=== PATIENT | female | born 1965 | race Caucasian/White ===

== ENCOUNTER 2016-11-21 07:32 | Day surgery (SDC) | payer OTHER ==
--- NOTE | 2016-11-07 10:06 | HP ---
CC: Gisela Stevens MD, [facility]; Jemima Billingsley MD* PREOPERATIVE HISTORY AND PHYSICAL: DATE OF ADMISSION: 11/21/16 This patient is scheduled for same-day surgery admission by Dr. Stevens on Thursday , 11/21/16. ATTENDING SURGEON: Gisela Stevens MD* (dictated by Mariam Vega NP). CHIEF COMPLAINT: Anal polyp and anal skin tags. HISTORY OF PRESENT ILLNESS: The patient is a 51-year-old female recently evaluated by Dr. Stevens for anal skin tags and anal polyp. The patient states that she has had anal skin tags for approximately 5 years and has been using Proctosol and baby wipes continuously. She denies problems with constipation and states that she eats a vegan diet and denies any blood per rectum. She states that on a recent colonoscopy, she was told that she had no internal hemorrhoids. Dr. Stevens examined the patient and notices multiple small skin tags in the 4 to 6 o'clock position and at the 10 to 11 o'clock position and then digital exam revealed a firm polypoid lesion at the 11 o'clock position; anoscopy also revealed several small internal hemorrhoids and at the 11 o'clock position is the larger 0.5 cm broad- based pedunculated mass. Dr. Stevens discussed the findings with the patient and has advised excision of the anal polypoid mass and the anal skin tags as a same day surgery procedure at [facility]. She described the nature of the surgical procedure, the rationale for the procedure, the relevant risks and benefits and today I reviewed the typical postoperative care and recovery. The patient has had a chance to ask questions and stated that she understands the information and is satisfied with the answers given to her questions. She will sign surgical consent on the day of surgery. PAST MEDICAL HISTORY: Malignant tumor of thyroid gland with thyroidectomy followed by ablation, 2007, in [facility]. PAST SURGICAL HISTORY: Thyroidectomy in 2007; laparoscopic cholecystectomy in 1994; laparoscopic appendectomy in 2000 and repair of detached retina in 1982. OBSTETRIC HISTORY: 0. She is up-to-date with mammogram, breast exam, pelvic, and Pap smear; she states that her last menstrual period was March 2016 and she is perimenopausal. MEDICATIONS: 1. Synthroid 112 mcg p.o. daily in the morning. 2. Multivitamin daily in the evening. 3. Calcium plus D supplement daily in the evening. 4. Vitamin D 1000 international units daily in the evening. 5. Vitamin B12, 1000 mg daily in the evening. 6. Iron Chews pediatric dose 27 mg p.o. daily in the evening. 7. CoQ10 p.o. daily. 8. Famotidine 40 mg p.o. daily. 9. Biotin 1 tablet daily in the evening. ALLERGIES: 1. CODEINE causes GI upset. 2. MORPHINE caused severe vomiting. 3. She is also intolerant to milk related compounds. FAMILY HISTORY: No known anesthesia complications, bleeding tendencies, or clotting disorders. Father had a history of lung and thyroid cancer. Mother with a history of hyperthyroidism. 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 She exercises regularly by walking. She drinks 1 alcoholic beverage daily. She denies the use of other substances. REVIEW OF SYSTEMS: Constitutional: Denies fevers, chills, excessive fatigue, or weight loss. Endocrine: History of thyroid malignancy, status post thyroidectomy in 2007; no diabetes. Hematologic: No easy bruising or bleeding ; no history of deep vein thrombosis or pulmonary embolism. No history of blood transfusions. Respiratory: No dyspnea on exertion. No chronic cough. Cardiovascular: No anginal chest pain or palpitations. Gastrointestinal: No nausea, vomiting, diarrhea, GI bleeding, or constipation. No change in bowel habits. No heartburn. Genitourinary: No dysuria. Musculoskeletal: No joint or back pain. Neurologic: No headache or blurred vision. General: No previous anesthesia complications. PHYSICAL EXAMINATION GENERAL SURVEY: The patient is a 51-year-old female, well developed, well nourished, in no acute distress. VITAL SIGNS: Height 62.75 inches, weight 111 pounds, body mass index 19.8. Blood pressure 115/70, pulse 68 and regular, respiratory rate 16, temperature 96.8 tympanic. HEENT: Benign. NECK: Supple. No cervical lymphadenopathy. Well-healed surgical scar, anterior neck. LUNGS: Breath sounds bilaterally clear and equal. HEART: Regular rate and rhythm. No murmurs or rubs appreciated. BACK: No CVA tenderness. ABDOMEN: Active bowel sounds. Multiple well-healed surgical scars, soft, nondistended, nontender throughout. No obvious masses, organomegaly or evidence of ventral hernia. PELVIC EXAM: Done recently, not repeated. RECTAL EXAM: Done by Dr. Stevens revealed multiple small pedunculated skin tags in the 4 to 6 o'clock position and at the 10 to 11 o'clock position; digital exam revealed a firm polypoid lesion at the 11 o'clock position; anoscopy revealed several small internal hemorrhoids and at the 11 o'clock position is the larger 0.5 cm broad-based pedunculated mass. EXTREMITIES: Warm without edema or skin ulcerations. NEUROLOGIC: Alert and oriented x3, steady gait. SKIN: Warm, dry, intact. IMPRESSION: Anal skin tags and anal polyp. PLAN: Same-day surgery admission to Dr. Stevens's service on 11/21/16, for excision of anal polyp and anal skin tags. CARIDAD VEGA, ACQUISITION EDITOR [id number]/[facility] #: [id number] [facility]PITAL[facility]
[~2016-11-21 07:32] MED LIST: Buffered Lidocaine 0.9% SYRIN* 5 ML/SYR SYRINGE INTRADERM ONE; Famotidine IV* 10 MG/ML 2 ML (20 mg) IV ONE; HYDROmorphone INJ* 1 MG/ML CARPUJECT SYRINGE IV PRN; Ondansetron INJ* 2 MG/ML VIAL IV PRN; PROCHLORPERAZINE INJ 5 MG/ML 2 ML VIAL IV PRN; Scopolamine 1.5 mg* PATCH TRANSDERM ONE; fentaNYL* 50 MCG/ML 2 ML VIAL (100 MCG VIAL) IV PRN
[2016-11-21] MEDS ORDERED: Famotidine IV* 10 MG/ML 2 ML (20 mg) ONE (07:35)
[2016-11-21] MEDS ORDERED: Buffered Lidocaine 0.9% SYRIN* 5 ML/SYR SYRINGE ONE (07:36)
[2016-11-21] MEDS ORDERED: ceFAZolin 2 GM PREMIX (*) 0 ML IVPB ONE (07:36)
[2016-11-21] MEDS ORDERED: Scopolamine 1.5 mg* PATCH ONE (08:07)
[2016-11-21] MEDS ORDERED: Midazolam* 1 MG/ML 5 ML VIAL (5 MG) ONE (08:26)
[2016-11-21] MEDS ORDERED: Bupivacaine 0.25% SDV* 30 ML ONE (08:30)
[2016-11-21] MEDS ORDERED: Gelfoam Sponge SIZE 100* SPONGE ONE (08:30)
[2016-11-21] MEDS ORDERED: Lidocaine 2% JELLY* 6 ML JELLY TOPICAL ONE (08:30)
[2016-11-21] MEDS ORDERED: ceFOXitin 2 GM IVPREMIX* 2 GM/50 ML BAG ONE (09:00)
[2016-11-21] MEDS ORDERED: Lidocaine 2% PF * 5 ML VIAL ONE (09:33)
[2016-11-21] MEDS ORDERED: Chloroprocaine 2%* 20 ML VIAL ONE (09:33)
[2016-11-21] MEDS ORDERED: Dexamethasone IV* 4 MG/ML 1 ML (4 MG) ONE (09:33)
[2016-11-21] MEDS ORDERED: Ondansetron INJ* 2 MG/ML VIAL ONE (09:33)
[2016-11-21] MEDS ORDERED: Propofol* 10 MG/ML 20 ML BTL IV PUSH ONE (09:33)
[2016-11-21] MEDS ORDERED: Gelfoam 12-7 ADSORBABL SPONGE* 1 EA SPONGE ONE (09:46)
[2016-11-21] MEDS ORDERED: Ketorolac INJ* 30 MG/ML 1 ML VIAL ONE (09:59)
--- NOTE | 2016-11-21 10:18 | SURGPN ---
Brief Operative Note - Surgery Procedures: 11/21/16 Op Note Pre-op dx: anal polyp and skin tag Post-op dx: same Procedure: excision anal polyp and skin tags Surgeon: Rodney Asst: None Anesth: spinal, local EBL: 10 cc complications: none SCDs on during surgery Abx: given pre-op Pt. tolerated procedure well and was transferred to in a stable condition. CLFoster
[2016-11-21 12:08] VITALS: BP 111/61
--- NOTE | 2016-11-21 21:35 | OP ---
CC: Jemima Billingsley MD * DATE OF OPERATION: 11/21/16 - [facility] DATE OF : 65 SURGEON: Gisela Stevens MD LOG RAFTER: There was no family medicine physician assistant for this case. ANESTHESIOLOGIST: Alex Prado MD ANESTHESIA: Spinal PRE-OP DIAGNOSIS: Anal polyp and skin tags. POST-OP DIAGNOSIS: Anal polyp and skin tags. OPERATIVE PROCEDURE: Excision of anal polyps and skin tags. INDICATIONS: Ms. Aranda is a 51-year-old woman with recently identified problematic skin tags and anal polyp prompting the plan for surgical intervention. DESCRIPTION OF PROCEDURE: She was brought to the operating room and placed on the OR table in a prone jackknife position. After having been given spinal anesthesia, the anal area was prepped and draped in the usual sterile fashion. After dilated to 4 fingers, a brief inspection of the anal canal was undertaken. There were some small internal hemorrhoids that did not appear problematic and a prominent anal polyp at the roughly 7 o'clock position internally. In addition, the external area had several anal skin tags visible. These were the areas she wanted removed. The anal polyp was excised first and labelled polyp from the 7 o'clock position and then proceeding around circumferentially, the other anal skin tags were removed and labelled according to their position on the clock base. The one located most posteriorly at 12 o' clock position resulted in associated tear of the skin, so one stitch was used to reapproximate the skin edges here and reduced the area of the skin tear. Then, Gelfoam soaked in lidocaine jelly was placed in the anal canal and a piece of Gelfoam was placed on the anal area with a dry sterile dressing. All sponge and instruments counts were correct. The patient tolerated the procedure well and was transferred to the Recovery in a stable condition. [id number]/[facility] #: [id number] MTDD
[2016-11-24] MEDS ORDERED: Scopolomine PATCH Remove* 1 NOTE MISC PATCH OFF ONE (06:00)
== END 2016-11-21 12:10 | disposition home or self-care (01) ==
LOC: OR 07:32
PROVIDERS: ATTEND Surgery
DX: K62.0 Anal polyp (principal); K64.4 Residual hemorrhoidal skin tags; Z85.850 Personal history of malignant neoplasm of thyroid; E89.0 Postprocedural hypothyroidism
CPT/HCPCS: 81025; 88304; A9270-GY; J0690; J0694; J1100; J1885; J2250; J2400; J2405; J2704